=== PATIENT | male | born 1985 | race Caucasian/White ===

== ENCOUNTER 2020-04-17 05:05 | Emergency (ER) | payer SELFPAY ==
[~2020-04-17] VITALS: Ht 185.4 cm; Wt 149.7 kg
[2020-04-17 05:10] VITALS: BP 128/63
--- NOTE | 2020-04-17 05:13 | NUR ---
TO [facility] AMBULATORY
--- NOTE | 2020-04-17 05:30 | NUR ---
SEEN AND EXAMINED BY EMILIA
[2020-04-17] MEDS ORDERED: methylPREDNISolone SS 125 MG/2 ML VIAL IM ONE (05:55)
--- NOTE | 2020-04-17 05:58 | NUR ---
MEDICATED PER [facility] ORDER, TOLERATED WELL.
[2020-04-17 06:30] VITALS: BP 128/63
--- NOTE | 2020-04-17 06:30 | NUR ---
Patient discharged with v/s stable. Written and verbal after care instructions given and explained. Patient verbalized understanding. Ambulatory with steady gait. All questions addressed prior to discharge. Advised to follow up with PMD.
== END 2020-04-17 06:30 | disposition home or self-care (01) ==
LOC: MED 05:05
DX: R21 Rash and other nonspecific skin eruption (principal)
CPT/HCPCS: 96372; 99283; J2930